=== PATIENT | male | born 1960 | race Hispanic/Latino ===

== ENCOUNTER 2024-01-21 16:46 | Emergency (ER) | payer SELFPAY ==
[~2024-01-21] VITALS: Ht 172.7 cm; Wt 79.4 kg
[2024-01-21] MEDS ORDERED: ACET-66 PO (18:21)
[2024-01-21 18:34] VITALS: BP 122/67; PULSE 80; RESP 16; O2SAT 99
[2024-01-21] MEDS: KETOROLAC 15MG/ML VIAL (15MG/ML) IM ONE (18:55)
== END 2024-01-21 19:25 | disposition home or self-care (01) ==
LOC: EDH 16:46
DX: G89.29 Other chronic pain (principal); M25.562 Pain in left knee; E11.9 Type 2 diabetes mellitus without complications; Z98.890 Other specified postprocedural states
CPT/HCPCS: 99284; 29505; 73560; 96372; J1885

== ENCOUNTER 2024-03-21 02:24 | Emergency (ER) | payer SELFPAY ==
[~2024-03-21] VITALS: Ht 172.7 cm; Wt 79.4 kg
[~2024-03-21 02:24] MED LIST: ACET-66 PO
[2024-03-21] MEDS: metoCLOPRAmide 10 MG/2 ML VIAL IM ONE (02:48)
[2024-03-21] MEDS: DIPH,PERTUSS(ACELL),TET VAC/PF 0.5 ML VIAL IM ONE (03:11)
[2024-03-21] MEDS: acetaMINOPHEN 500 MG TABLET PO ONE (06:01)
[2024-03-21] MEDS: acetaMINOPHEN 500 MG TABLET ONE (06:12)
[2024-03-21 06:21] VITALS: BP 122/58; PULSE 72; RESP 18; TEMP 98.6; O2SAT 100
== END 2024-03-21 06:22 | disposition home or self-care (01) ==
LOC: EDH 02:24
DX: S01.91XA Laceration without foreign body of unspecified part of head, initial encounter (principal); E11.9 Type 2 diabetes mellitus without complications; E78.00 Pure hypercholesterolemia, unspecified; I10 Essential (primary) hypertension; W18.39XA Other fall on same level, initial encounter; Y93.89 Activity, other specified; Y92.89 Other specified places as the place of occurrence of the external cause; Y99.8 Other external cause status
CPT/HCPCS: 99285; 70450; 90715; 72125; 74176; 90471; 12002; 96372; J2765

== ENCOUNTER 2024-03-28 11:11 | Emergency (ER) | payer SELFPAY ==
[~2024-03-28] VITALS: Ht 172.7 cm; Wt 83.9 kg
[2024-03-28 11:22] VITALS: BP 120/76; PULSE 74; RESP 18; TEMP 98; O2SAT 100
--- NOTE | 2024-03-28 11:57 | ERN ---
General Chief Complaint: Suture/Staple Removal Stated Complaint: DONTE REMOVAL Time Seen by MD: 11:13 Source: patient History of Present Illness Initial Comments Patient is a 64-year-old male coming in to be evaluated for suture/staple removal. Patient states that the donte were placed week ago. Five donte in the occipital region. Allergies: Coded Allergies: No Known Drug Allergies (Unverified Allergy, Unknown, 01/21/24) Home Meds Active Scripts Acetaminophen (Acetaminophen) 500 Mg Tablet, 500 MG PO TID, #30 TAB Prov:ALVINA PAYTON 01/21/24 Past Medical History Past Medical History: Diabetes-Type II, Hypertension Medical History Other: COCAINE ABUSE Past Surgical History: None Surgical History Other: LEFT KNEE SX ROS Dictation CONSTITUTIONAL: No chills, no fever, no weakness, no diaphoresis, no malaise. HEAD/FACE: No signs of trauma. EENT: No eye pain, no blurred vision, no tearing, no double vision, no ear pain, no ear discharge, no nose pain, no nasal congestion, no throat pain, no throat swelling, no mouth pain. RESPIRATORY: No cough, no orthopnea, no SOB, no stridor, no wheezing. CARDIOVASCULAR: No chest pain, no edema, no palpitations, no syncope. GASTROINTESTINAL/ABDOMINAL: No abdominal pain, no constipation, no diarrhea, no nausea, no vomiting. GENITOURINARY: No abnormal discharge, no dysuria, no frequent urination, no hematuria. No complaints of pain in the genitals. MUSCULOSKELETAL: No back pain, no gout, no joint pain, no joint swelling, no muscle pain, no muscle stiffness, no neck pain. INTEGUMENTARY: No change in color, no change in hair/nails, no dryness, no lesion, no lumps, no rash. NEUROLOGICAL/PSYCH: No anxiety, not depressed, no emotional problem, no headache, no numbness, no pre-existing deficit, no history of seizures, no tremors, no weakness. HEMATOLOGIC/LYMPHATIC: Not anemic, no history of blood clots, no apparent bleeding, no bruising, glands not swollen. All Systems Negative, Except as Noted. Physical Exam Physical Exam Dictation VITAL SIGNS: Reviewed. GENERAL APPEARANCE: Alert, oriented x3, no acute distress, obese. HEAD AND FACE: Non-traumatic. EYES: PERRL, pink conjunctivas, eyelid no trauma, anterior chamber clear. EARS: Pinnas intact and no signs of trauma or erythema. Ear canals clear and no discharge. TMs no erythema. NOSE: No discharge, no bleeding. OROPHARYNX: Mouth normal, teeth no caries, tongue pink. Pharynx clear, no erythema. Tonsils no exudates, no abscesses noted. Mucous membrane moist. NECK: Supple, non-tender, no thyromegaly, no masses, no JVD, no bruits. BREAST: Deferred. CHEST: No tenderness, no crepitus, no paradoxical movement, no retractions. LUNGS: Clear, well-ventilated, symmetric, no rales, no wheezing, no rhonchi, no stridor, good breath sounds bilaterally. HEART: Regular rate, regular rhythm, no murmur, no gallops. VASCULAR: No peripheral edema. ABDOMEN: Soft, positive bowel sounds, nondistended, no guarding, nontender, no rebound, no masses no hepatomegaly, no splenomegaly, no Francisco's sign, no hernias. RECTAL: Deferred. GENITAL: Deferred. NEUROLOGICAL: Normal speech, gross motor function intact, gross sensory function intact. MUSCULOSKELETAL: Neck nontender, full range of motion, back nontender, full range of motion. EXTREMITIES: Nontender, full range of motion. SKIN: Color pink, dry, five donte in the occipital scalp region LYMPHATICS: Deferred. MDM MDM: Differential diagnosis: Suture removal, staple removal Patient is a 64-year-old male coming in to be evaluated for staple placement one week ago. Five donte were removed from the occipital region. ED Course Vital Signs Date Time Temp Pulse Resp B/P (MAP) Pulse Ox O2 Delivery O2 Flow Rate FiO2 03/28/24 11:22 98.1 74 18 120/76 100 Room Air* 0 21 03/28/24 11:19 98.1 74 18 120/76 100 Room Air 0 DX & DISP Disposition: Discharge Departure Impression: Primary Impression: Removal of donte Condition: Stable Additional Instructions: Follow up with your Primary physcian in 2-3 days. Take medications as prescrib ed. Please return to the emergency if symptoms return or worsen. Referrals: JUAN FRASER MD (PCP) Time of Disposition: 11:56 PATO JON MD Mar 28, 2024 11:57
== END 2024-03-28 11:46 | disposition home or self-care (01) ==
LOC: EDH 11:11
DX: S01.81XD Laceration without foreign body of other part of head, subsequent encounter (principal); E11.9 Type 2 diabetes mellitus without complications; I10 Essential (primary) hypertension; Z48.02 Encounter for removal of sutures; X58.XXXD Exposure to other specified factors, subsequent encounter
CPT/HCPCS: 99281